=== PATIENT | female | born 1965 | race Caucasian/White ===

== ENCOUNTER 2016-06-21 05:03 | Day surgery (SDC) | payer OTHER ==
[2016-06-12 13:37] VITALS: BMI 28.3
[2016-06-21 07:11] VITALS: BP 134/89; PULSE 97; TEMP 98.4
[2016-06-21] MEDS ORDERED: ROPIVACAINE HCL 0.5% 30ML VIAL ONE (07:14)
[2016-06-21] MEDS ORDERED: MIDAZOLAM HCL 2 MG/2 ML SINGLE DOSE VIAL ONE ×2 (07:17)
== END 2016-06-21 08:30 | disposition home or self-care (01) ==
LOC: JASU-SURG 05:03
PROVIDERS: ATTEND Orthopaedic Surgery
PROC: 8E0KXY7 Examination of Musculoskeletal System (ICD-10-PCS; principal; 2016-06-21)
DX: Z53.8 Procedure and treatment not carried out for other reasons (principal)

== ENCOUNTER 2016-07-07 08:34 | Day surgery (SDC) | payer OTHER ==
[2016-07-06 15:06] VITALS: BMI 28.3
[2016-07-07] MEDS ORDERED: ROPIVACAINE HCL 0.5% 30ML VIAL ONE (09:56)
[2016-07-07] MEDS ORDERED: MIDAZOLAM HCL 2 MG/2 ML SINGLE DOSE VIAL ONE ×3 (09:57→10:37)
[2016-07-07] MEDS ORDERED: oxyCODONE HCL 5 MG TABLET PO PRN (09:59)
[2016-07-07] MEDS ORDERED: ONDANSETRON 4 MG/2 ML VIAL IVPUSH PRN (09:59)
[2016-07-07] MEDS ORDERED: LACTATED RINGERS SOLUTION 1,000 ML IV SCH (10:00)
[2016-07-07] MEDS ORDERED: SODIUM CHLORIDE 0.9% P/F 10 ML VIAL IJ ONE (10:36)
[2016-07-07] MEDS ORDERED: DEXAMETHASONE SOD PHOSPHATE 4 MG/1 ML VIAL ONE (10:36)
[2016-07-07] MEDS ORDERED: PROPOFOL 20 ML ONE (10:36)
[2016-07-07] MEDS ORDERED: ceFAZolin SODIUM 1 GM VIAL ONE ×2 (10:36→15:40)
[2016-07-07] MEDS ORDERED: KETOROLAC TROMETHAMINE 30 MG/1 ML VIAL ONE (10:36)
--- NOTE | 2016-07-07 10:36 | HP ---
[facility] - Chief Complaint Chief Complaint: right shoulder pain - Past Medical History Allergies/Adverse Reactions: Allergies Allergy/AdvReac Type Severity Reaction Status Date / Time No Known Allergies Allergy Verified 07/06/16 15:06 ...LMP Comment: 2YRS AGO - Current Medications Current Medications: Home Medications Medication Instructions Recorded Aspirin/Acetaminophen/Caffeine 1 each PO PRN PRN 06/12/16 [Excedrin Migraine Caplet] Folic Acid/Mv,Fe,Min [One Daily 1 each PO DAILY 06/12/16 Complete Tablet] Ibuprofen [Motrin -] 800 mg PO PRN PRN 06/12/16 Ranitidine HCl [Zantac] 150 mg PO DAILY 06/12/16 Oxycodone HCl/Acetaminophen 1 - 2 tab PO Q6H #50 tab MDD 8 07/07/16 [Percocet 5-325 mg Tablet -] Satellite Physical Exam - Physical Examination Vital Signs: Vital Signs Period Temp Pulse Resp BP Sys/Baptiste Pulse Ox Last 24 Hr 97.6 F-97.6 F 80-80 20-20 136-136/96-96 98 General Appearance: Well Nourished, Well Developed, Alert & Oriented x3 ENT: Clear Lung: Normal air movement Heart: Regular rate & rhythm Extremities: Other (right shoulder- + ttp, decr rom, + empty can, nvi MRI + rct) Neurological: Intact, Alert, Oriented Satellite Impression/Plan - Impression/Plan Impression: right shoulder RCT Operative Procedure: right shoulder arthroscopy with RCR, SAD Date to be Performed: 07/07/16
[2016-07-07] MEDS ORDERED: ceFAZolin SODIUM 1 GM VIAL IVPB ONE (11:05)
[2016-07-07] MEDS ORDERED: CEFAZOLIN 1 GM in DEXTROSE 5%-WATER - 50 ML IVPB ONE (12:00)
--- NOTE | 2016-07-07 12:01 | OP ---
Operative Note - Note: Operative Date: 07/07/16 ([facility]) Pre-Operative Diagnosis: right shoulder rct Operation: right shoulder arthroscopy with RCR, SAD Implants: 2 swivelocks Post-Operative Diagnosis: Same as Pre-op Surgeon: Juwan Urbina Remote Operations Producer: Marcos Saavedra Anesthesiologist/HEALTH AND SAFETY SPECIALIST: Lobo Prado Jr. Anesthesia: General, Local Specimens Removed: shavings Estimated Blood Loss (mls): 5 Operative Report Dictated: Yes
--- NOTE | 2016-07-07 13:38 | OP ---
DATE OF OPERATION: 07/07/2016 PREOPERATIVE DIAGNOSIS: Right rotator cuff tear. POSTOPERATIVE DIAGNOSIS: Right rotator cuff tear. PROCEDURE: Arthroscopy, right shoulder, subacromial debridement, and arthroscopic right rotator cuff repair. SURGICAL ATTENDING: Eitan Urbina MD WARPER TENDER: LIZANDRO Rankin ANESTHESIA: Regional and general. CLOSURE: Two SwiveLocks with FiberTape suture for rotator cuff and 3-0 nylon for skin. ESTIMATED BLOOD LOSS: Negligible. COMPLICATIONS: None. CONDITION: To recovery room in stable condition. DESCRIPTION OF PROCEDURE: Patient was taken to the operating room on July 07, 2016. General anesthesia and regional anesthesia were administered by the anesthesiologist. IV Kefzol was administered prophylactically prior to the case. Patient was placed in the beach-chair position with all prominences well padded. The right shoulder area was prepped and draped in the usual sterile fashion. First, a diagnostic arthroscopy of the glenohumeral joint was performed. A posterior portal was made 2 fingerbreadths below the acromion, first with a 15 blade followed by a blunt trocar. Circumferential examination of the glenohumeral joint revealed the following: Intact glenohumeral head, articular cartilage initially intact, biceps with some fraying to its anchor, but mostly intact, intact labrum circumferentially. No loose bodies in the axillary pouch. Intact subscapularis to its insertion. A crescent tear of the supraspinatus was encountered with no retraction. The rest of the rotator cuff was intact. The fluid was drained from the shoulder, and the trocar was removed. The posterior trocar was redirected in the subacromial space. Accessory lateral portal was made with a 15 blade and blunt trocar. Bursectomy was performed using the ArthroCare device. The undersurface of the acromion was debrided using the acromionizer ivonne up to the appropriate level gaining sufficient height for the rotator cuff. The coracoacromial ligament was identified and detached off the anterior acromion. It was further debrided. Looking inferiorly on the humeral head, it was encased with fibrous tissue. This was debrided using the shaver and the ArthroCare device. Once removed, the rotator cuff tear was clearly visualized. Its bed was burred to stimulate bleeding bone on the greater tuberosity. Its edges were debrided exposing healthy rotator cuff tissue. Two FiberTape sutures were passed using the Scorpio needle from the inside out both limbs, exiting lateral portal, one more anteriorly, one more posteriorly. Two individual SwiveLocks were used to fixate these FiberTape sutures to the greater tuberosity achieving excellent fixation. The sutures were cut snug. Probing revealed good repair of the rotator cuff with no undue tension. Shoulder was irrigated. The portals were all closed with 3-0 nylon, sterile pressure dressing, followed by shoulder mobilizer which was applied. Patient awakened from anesthesia and transferred to the recovery room in stable condition. No complications. Estimated blood loss negligible. EITAN URBINA M.D. [id number]
[2016-07-07 15:17] VITALS: TEMP 98.1
[2016-07-07 16:28] VITALS: BP 131/90; PULSE 100
--- NOTE | 2016-07-10 09:21 | PATH ---
Surgical Pathology Report Patient Name: BIGG SHELBY [facility] Rec. #: [id number] /Age/Gender: 1965 (Age: 50) / F Account: [id number] Location: [facility] SURGICAL Taken: 07/07/2016 Received: 07/07/2016 Reported: 07/10/2016 Physicians: Juwan Urbina M.D. Specimen(s) Received SHAVINGS RIGHT SHOULDER Clinical History Right shoulder impingement syndrome Final Diagnosis RIGHT SHOULDER, ARTHROSCOPIC SHAVING: PORTIONS OF SYNOVIUM, CARTILAGE, SKELETAL MUSCLE AND BONE CONSISTENT WITH ARTHROSCOPIC SHAVINGS. Electronically Signed Ronni Hernández M.D. Gross Description Received in formalin, labeled "right shoulder shavings," is a 4.0 x 3.0 x 0.3 cm. aggregate of arriola-yellow soft tissue fragments. A commercial sales representative portion is submitted in one cassette. /07/07/201607/07/2016
== END 2016-07-07 17:12 | disposition home or self-care (01) ==
LOC: JASU-SURG 08:34
PROVIDERS: ATTEND Orthopaedic Surgery
PROC: 0LB14ZZ Excision of Right Shoulder Tendon, Percutaneous Endoscopic Approach (ICD-10-PCS; principal; 2016-07-07 10:30)
PROC: 0RNJ4ZZ Release Right Shoulder Joint, Percutaneous Endoscopic Approach (ICD-10-PCS; 2016-07-07 10:30)
DX: M75.101 Unspecified rotator cuff tear or rupture of right shoulder, not specified as traumatic (principal)
CPT/HCPCS: 88304-TC; 94760